=== PATIENT | female | born 1990 | race Asian ===

== ENCOUNTER 2023-03-15 18:12 | Outpatient (REF) | payer MEDICARE, SELFPAY ==
[2023-03-16 12:01] LABS: BV Int Neg Control Negative (Negative); BV Int Pos Control Positive (Positive)
[2023-03-24 04:29] LABS: HPV mRNA E6/E7 rflx Not Detected (Not Detected)
== END 2023-03-15 18:13 | disposition home or self-care (01) ==
LOC: HO.HHCLNP 18:12
PROVIDERS: Visit Provider Advanced Practice Midwife
DX: Z12.4 Encounter for screening for malignant neoplasm of cervix (principal); Z11.51 Encounter for screening for human papillomavirus (HPV); N89.8 Other specified noninflammatory disorders of vagina
CPT/HCPCS: 87480; 87510; 87624; 87660; 88142